=== PATIENT | female | born 1940 | race Caucasian/White ===

== ENCOUNTER → 2016-06-23 | Outpatient (CLI) | payer MEDICARE, BC | LOC: MC.RAD 10:20 | DX: Z12.31 Encounter for screening mammogram for malignant neoplasm of breast (principal) ==

== ENCOUNTER → 2017-06-28 | Outpatient (CLI) | payer MEDICARE, BC | LOC: MC.RAD 10:30 | DX: Z12.31 Encounter for screening mammogram for malignant neoplasm of breast (principal) ==

== ENCOUNTER → 2019-01-09 | Outpatient (CLI) | payer MEDICARE, BC | LOC: MC.RAD 11:17 | DX: Z12.31 Encounter for screening mammogram for malignant neoplasm of breast (principal) ==

== ENCOUNTER 2019-06-13 08:12 | Day surgery (SDC) | payer MEDICARE, BC ==
[~2019-06-13] VITALS: Ht 152.4 cm; Wt 90.2 kg
[2019-06-13] MEDS ORDERED: ZYLOPRIM 100MG100 MG PO (08:30)
[2019-06-13] MEDS ORDERED: B COMPLEX #11 TAB PO (08:31)
[2019-06-13] MEDS ORDERED: CHROMIUM PICOLI1 TA8 PO (08:31)
[2019-06-13] MEDS ORDERED: ASPIRIN 81M81 MG/TA2 PO (08:31)
[2019-06-13] MEDS ORDERED: COENZYME Q-10200 M1 PO (08:32)
[2019-06-13] MEDS ORDERED: KRILL OIL 1,001 EAC1 PO (08:32)
[2019-06-13] MEDS ORDERED: SYNTHROID0.05 MG/TA PO (08:33)
[2019-06-13] MEDS ORDERED: VITAMIN K0.1 MG PO (08:33)
[2019-06-13] MEDS ORDERED: GLUCOPHAGE1000 MG PO (08:34)
[2019-06-13] MEDS ORDERED: PRAVACHOL 20MG20 MG PO (08:34)
[2019-06-13] MEDS ORDERED: EVISTA 60MG60 MG/TAB PO (08:35)
[2019-06-13] MEDS ORDERED: B-121000 MCG PO (08:35)
[2019-06-13] MEDS ORDERED: MASON NATURAL2000 IU PO (08:36)
[2019-06-13] MEDS ORDERED: NATURAL MAGNES200 MG PO (08:36)
[2019-06-13] MEDS ORDERED: ONE DAILY MULTI1 TA1 PO (08:37)
[2019-06-13 08:53] VITALS: BP 133/82; PULSE 96; TEMP 97.8
[2019-06-13 09:55] VITALS: BP 122/77; PULSE 85; TEMP 98.3
--- NOTE | 2019-06-13 09:55 | NUR ---
Pt to [facility] via cart from [facility]. Pt drowsy, but awake. Pt denies pain or nausea. Pt ambulates to recliner with stand by assistance. Warm blanket provided. Muffin and coffee provided per pt request. in room. Call light within reach.
[2019-06-13 10:10] VITALS: BP 124/81; PULSE 89
--- NOTE | 2019-06-13 10:10 | NUR ---
Pt continues to rest. Tolerating food and fluids without difficulties. Will continue to monitor. Call light within reach.
[2019-06-13 10:25] VITALS: BP 138/91; PULSE 85
--- NOTE | 2019-06-13 10:25 | NUR ---
Pt continues to rest. Denies needs. Call light within reach.
--- NOTE | 2019-06-13 10:35 | NUR ---
Discharge instructions reviewed. Pt voices understanding. IV site discontinued with all parts intact. Pt up to dress. Call light within reach.
--- NOTE | 2019-06-13 10:46 | NUR ---
Pt escorted to private car via wheel chair. Pt accompanied home by her friend.
== END 2019-06-13 10:40 | disposition home or self-care (01) ==
LOC: SDCO 08:12
DX: Z12.11 Encounter for screening for malignant neoplasm of colon (principal); K57.30 Diverticulosis of large intestine without perforation or abscess without bleeding; K64.0 First degree hemorrhoids; K21.9 Gastro-esophageal reflux disease without esophagitis; E78.00 Pure hypercholesterolemia, unspecified; E11.9 Type 2 diabetes mellitus without complications; K29.70 Gastritis, unspecified, without bleeding; G47.33 Obstructive sleep apnea (adult) (pediatric); M19.90 Unspecified osteoarthritis, unspecified site; Z86.010 Personal history of colon polyps; Z90.710 Acquired absence of both cervix and uterus
CPT/HCPCS: J2704; J7030

== ENCOUNTER → 2019-10-24 | Outpatient (CLI) | payer MEDICARE, BC ==
[~2019-10-24] MED LIST: ASPIRIN 81M81 MG/TA2 PO; B COMPLEX #11 TAB PO; B-121000 MCG PO; CHROMIUM PICOLI1 TA8 PO; COENZYME Q-10200 M1 PO; EVISTA 60MG60 MG/TAB PO; GLUCOPHAGE1000 MG PO; KRILL OIL 1,001 EAC1 PO; MASON NATURAL2000 IU PO; NATURAL MAGNES200 MG PO; ONE DAILY MULTI1 TA1 PO; PRAVACHOL 20MG20 MG PO; SYNTHROID0.05 MG/TA PO; VITAMIN K0.1 MG PO; ZYLOPRIM 100MG100 MG PO
== END ==
LOC: COL.RAD 14:05
DX: M43.16 Spondylolisthesis, lumbar region (principal); M51.37 Other intervertebral disc degeneration, lumbosacral region; M47.26 Other spondylosis with radiculopathy, lumbar region; M54.42 Lumbago with sciatica, left side

== ENCOUNTER → 2020-01-12 | Outpatient (CLI) | payer MEDICARE, BC | LOC: MC.RAD 13:52 | DX: Z12.31 Encounter for screening mammogram for malignant neoplasm of breast (principal) ==

== ENCOUNTER → 2021-09-16 | Outpatient (CLI) | payer MEDICARE, BC | LOC: COL.RAD 08:30 | DX: M47.816 Spondylosis without myelopathy or radiculopathy, lumbar region (principal); M48.02 Spinal stenosis, cervical region; M48.061 Spinal stenosis, lumbar region without neurogenic claudication; G95.19 Other vascular myelopathies ==